=== PATIENT | female | born 2000 | race Hispanic/Latino ===

== ENCOUNTER 2018-05-09 16:56 | Emergency (ER) | payer SELFPAY ==
[2018-05-09] MEDS ORDERED: ACETAMINOPHEN 325 MG TAB ONE (17:55)
[2018-05-09 18:57] LABS: RAPID GROUP A STREP NEGATIVE (NEGATIVE)
== END 2018-05-09 19:12 | disposition home or self-care (01) ==
LOC: EDH 16:56
DX: J09.X2 Influenza due to identified novel influenza A virus with other respiratory manifestations (principal); R50.81 Fever presenting with conditions classified elsewhere; J45.909 Unspecified asthma, uncomplicated
CPT/HCPCS: 71046; 81025; 87804; 87880

== ENCOUNTER 2021-02-10 21:03 | Emergency (ER) | payer MEDICAID, OTHER ==
[~2021-02-10] VITALS: Ht 157.5 cm; Wt 71.7 kg
[2021-02-10 21:08] VITALS: BP 149/77
[2021-02-10] MEDS ORDERED: MAG/ALUM/SIMETH 30 ML UDCUP PO ONE (22:00)
[2021-02-10] MEDS ORDERED: LIDOCAINE HCL 2% VISCOUS 15 ML UDCUP PO ONE (22:00)
[2021-02-10] MEDS ORDERED: ONDANSETRON ODT 4MG TAB SL ONE (22:00)
[2021-02-10] MEDS ORDERED: PHEN12S PR (22:57)
[2021-02-10] MEDS ORDERED: ONDA4TAB10 PO (22:57)
[2021-02-10] MEDS ORDERED: ALBU8.5H8 IH (22:57)
[2021-02-10] MEDS ORDERED: BENZ-17 PO (22:57)
[2021-02-10] MEDS ORDERED: MAG/ALUM/SIMETH 30 ML UDCUP ONE (23:08)
[2021-02-10] MEDS ORDERED: LIDOCAINE HCL 2% VISCOUS 15 ML UDCUP ONE (23:08)
[2021-02-10] MEDS ORDERED: ONDANSETRON ODT 4MG TAB ONE (23:09)
== END 2021-02-10 23:27 | disposition home or self-care (01) ==
LOC: EDH 21:03
DX: O98.513 Other viral diseases complicating pregnancy, third trimester (principal); B34.9 Viral infection, unspecified; O21.8 Other vomiting complicating pregnancy; O99.513 Diseases of the respiratory system complicating pregnancy, third trimester; J45.909 Unspecified asthma, uncomplicated; Z3A.35 35 weeks gestation of pregnancy; Z20.822 Contact with and (suspected) exposure to COVID-19; Z79.899 Other long term (current) drug therapy
CPT/HCPCS: 87635; 87804 ×2; 99284; C9803

== ENCOUNTER 2023-09-24 06:11 | Emergency (ER) | payer MEDICAID, OTHER ==
[~2023-09-24] VITALS: Ht 157.5 cm; Wt 74.8 kg
[~2023-09-24 06:11] MED LIST: ALBU8.5H8 IH; BENZ-17 PO; ONDA4TAB10 PO; PHEN12S PR
[2023-09-24 06:39] LABS: BILIRUBIN,URINE NEGATIVE (NEGATIVE); COLOR,URINE YELLOW (YELLOW); GLUCOSE, URINE (UA) NEGATIVE (NEGATIVE); KETONES,URINE NEGATIVE (NEGATIVE); LEUKOCYTE ESTERASE ,URINE 250 Leu/uL (NEGATIVE); NITRATE,URINE NEGATIVE (NEGATIVE); OCCULT BLOOD,URINE SMALL (NEGATIVE); PH,URINE 5.5 (5.0-8.0); PROTEIN,URINE 30 mg/dL (NEGATIVE); UROBILINOGEN,URINE 0.2 mg/dL (0.2-1.0)
[2023-09-24 06:44] LABS: ADD UA MICROSCOPIC YES; APPEARANCE,URINE HAZY (CLEAR)
[2023-09-24 06:55] LABS: BACTERIA,URINE FEW /HPF (None Seen); MUCUS,URINE RARE LPF (None Seen); SQUAMOUS EPITHELIAL CELL,UR FEW /HPF (0-2); WBC,URINE 51-100 /HPF (0-1)
[2023-09-24] MEDS ORDERED: PHEN-847 PO (09:17)
[2023-09-24] MEDS ORDERED: MACR100 PO (09:17)
[2023-09-24 09:25] VITALS: BP 108/69; PULSE 65; RESP 17; O2SAT 100
== END 2023-09-24 09:26 | disposition home or self-care (01) ==
LOC: EDH 06:11
DX: N30.01 Acute cystitis with hematuria (principal); Z79.899 Other long term (current) drug therapy
CPT/HCPCS: 81001; 81025; 87077; 87088; 87186